=== PATIENT | male | born 1990 | race Two or more races ===

== ENCOUNTER 2020-12-23 10:57 | Emergency (ER) | payer OTHER ==
[~2020-12-23] VITALS: Ht 185.4 cm; Wt 68.0 kg
[2020-12-23 10:59] VITALS: BP 124/99
[2020-12-23 11:53] LABS: Urine Bacteria NONE SEEN /hpf (None Seen); Urine Blood Negative /uL (Negative); Urine Mucus FEW (None Seen); Urine Specific Gravity 1.019 (1.001-1.035); Urine WBC 1 /hpf (0 - 3)
== END 2020-12-23 13:39 | disposition home or self-care (01) ==
LOC: ER 10:57
DX: L72.0 Epidermal cyst (principal); F17.210 Nicotine dependence, cigarettes, uncomplicated
CPT/HCPCS: 76870; 81001